=== PATIENT | female | born 1970 | race Caucasian/White ===

== ENCOUNTER 2018-01-16 09:07 | Outpatient (CLI) | payer OTHER | END 2018-01-16 09:08 | disposition home or self-care (01) | LOC: BICMAMMO 09:07 | PROVIDERS: ATTEND Obstetrics & Gynecology | DX: Z12.31 Encounter for screening mammogram for malignant neoplasm of breast (principal); R92.1 Mammographic calcification found on diagnostic imaging of breast; Z80.3 Family history of malignant neoplasm of breast | CPT/HCPCS: 77063; 77067 ==

== ENCOUNTER 2018-04-27 15:20 | Emergency (ER) | payer OTHER ==
[2018-04-27] MEDS ORDERED: diphenhydrAMINE 25 MG CAP ONE (16:08)
[2018-04-27] MEDS ORDERED: Famotidine 20 MG TAB ONE ×2 (16:08→16:15)
[2018-04-27] MEDS ORDERED: predniSONE 20 MG TAB ONE (16:08)
[2018-04-27] MEDS ORDERED: Dexamethasone 10 MG/ML VIAL ONE (16:31)
== END 2018-04-27 19:07 | disposition home or self-care (01) ==
LOC: ERS 15:20
DX: T78.1XXA Other adverse food reactions, not elsewhere classified, initial encounter (principal); E03.9 Hypothyroidism, unspecified; J45.909 Unspecified asthma, uncomplicated
CPT/HCPCS: 99284; J1100; Q0163

== ENCOUNTER 2019-02-19 10:51 | Outpatient (CLI) | payer OTHER ==
--- NOTE | 2019-02-19 14:22 | MMO ---
Bilateral MAMMO Bilat Screen [facility]. CLINICAL HISTORY: Patient is 48 years old and is seen for screening. The patient has the following family history of breast cancer: mother, at age 79; 2 maternal aunts and paternal grandmother, 50-60. The patient has a history of Skin cancer at age 46. VIEWS: The views performed were: bilateral craniocaudal with tomosynthesis; bilateral mediolateral oblique with tomosynthesis; and bilateral exaggerated craniocaudal. FILMS COMPARED: The present examination has been compared to prior imaging studies performed at [facility] on 12/30/2014, 11/21/2016, 11/22/2016 and 01/16/2018. This study has been interpreted with the assistance of computer-aided detection. MAMMOGRAM FINDINGS: There are scattered fibroglandular densities. There are no suspicious masses, suspicious calcifications, or new areas of architectural distortion. IMPRESSION: THERE IS NO MAMMOGRAPHIC EVIDENCE OF MALIGNANCY. A ROUTINE FOLLOW-UP MAMMOGRAM IN 1 YEAR IS RECOMMENDED. THE RESULTS OF THIS EXAM WERE SENT TO THE PATIENT. ACR BI-RADS Category 1 - Negative MAMMOGRAPHY NOTE: 1. A negative mammogram report should not delay a biopsy if a dominant of clinically suspicious mass is present. 2. Approximately 10% to 15% of breast cancers are not detected by mammography. 3. Adenosis and dense breasts may obscure an underlying neoplasm. Reported by: LOTUS GOMEZ MD Electonically Signed: [id number]
== END 2019-02-19 10:52 | disposition home or self-care (01) ==
LOC: BICMAMMO 10:51
PROVIDERS: ATTEND Obstetrics & Gynecology
DX: Z12.31 Encounter for screening mammogram for malignant neoplasm of breast (principal); Z85.828 Personal history of other malignant neoplasm of skin; Z80.3 Family history of malignant neoplasm of breast
CPT/HCPCS: 77063; 77067

== ENCOUNTER 2019-04-01 10:28 | Outpatient (CLI) | payer OTHER ==
--- NOTE | 2019-04-01 10:56 | RAD ---
RIGHT HAND 3 VIEWS: HISTORY: Polyarthralgias. COMPARISON: None. FINDINGS: No acute displaced fracture or malalignment. No erosions or periostitis. Minimal interphalangeal joint space narrowing of the proximal distal interphalangeal joint space smal l finger. IMPRESSION: No acute osseous abnormality. 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 POS: [facility]
--- NOTE | 2019-04-01 10:57 | RAD ---
EXAM: 3 views of the left hand COMPARISON: None HISTORY: Hand pain and arthritis for one year FINDINGS: 3 views of the hand shows no evidence of acute fracture or dislocation. No degenerative princess nges are seen. No soft tissue swelling is present. IMPRESSION: Unremarkable exam.
== END 2019-04-01 10:29 | disposition home or self-care (01) ==
LOC: BICRAD 10:28
DX: M25.541 Pain in joints of right hand (principal)

== ENCOUNTER 2021-03-02 11:31 | Outpatient (CLI) | payer OTHER | END 2021-03-02 11:32 | disposition home or self-care (01) | LOC: BICMAMMO 11:31 | PROVIDERS: ATTEND Internal Medicine | DX: Z12.31 Encounter for screening mammogram for malignant neoplasm of breast (principal); Z80.3 Family history of malignant neoplasm of breast; Z85.828 Personal history of other malignant neoplasm of skin | CPT/HCPCS: 77063; 77067 ==

== ENCOUNTER 2021-08-21 13:40 | Outpatient (CLI) | payer BC, OTHER ==
[~2021-08-21 13:40] MED LIST: Magnevist 469MG/ML 20 ML VIAL ONE
== END 2021-08-21 13:41 | disposition home or self-care (01) ==
LOC: BICMRI 13:40
PROVIDERS: ATTEND Obstetrics & Gynecology
DX: D25.1 Intramural leiomyoma of uterus (principal); D25.0 Submucous leiomyoma of uterus; N89.8 Other specified noninflammatory disorders of vagina
CPT/HCPCS: 72197

== ENCOUNTER 2022-05-21 08:19 | Outpatient (CLI) | payer BC, OTHER | END 2022-05-21 08:20 | disposition home or self-care (01) | LOC: BICMAMMO 08:19 | PROVIDERS: ATTEND Internal Medicine | DX: Z12.31 Encounter for screening mammogram for malignant neoplasm of breast (principal); Z85.828 Personal history of other malignant neoplasm of skin; Z80.3 Family history of malignant neoplasm of breast | CPT/HCPCS: 77063; 77067 ==

== ENCOUNTER 2023-05-13 09:25 | Outpatient (CLI) | payer BC, OTHER | END 2023-05-13 09:26 | disposition home or self-care (01) | LOC: BICRAD 09:25 | PROVIDERS: ATTEND Internal Medicine Rheumatology | DX: M79.641 Pain in right hand (principal); M79.642 Pain in left hand; M18.12 Unilateral primary osteoarthritis of first carpometacarpal joint, left hand ==